=== PATIENT | female | born 1955 | race Caucasian/White ===

== ENCOUNTER 2019-04-23 19:27 | Emergency (ER) | payer OTHER ==
[~2019-04-23] VITALS: Ht 160 cm; Wt 52.2 kg
[~2019-04-23 19:27] MED LIST: Desyrel50 MG PO; ESTRIOL; I PRIN PO; LEVSOD75 PO; TESTOSTERONE
[2019-04-23] MEDS ORDERED: Roxicodone5 MG PO (21:21)
== END 2019-04-23 21:44 | disposition home or self-care (01) ==
LOC: ER 19:27
DX: S52.611A Displaced fracture of right ulna styloid process, initial encounter for closed fracture (principal); S52.501A Unspecified fracture of the lower end of right radius, initial encounter for closed fracture; Z88.1 Allergy status to other antibiotic agents; Z79.899 Other long term (current) drug therapy; E03.9 Hypothyroidism, unspecified; Z87.891 Personal history of nicotine dependence
CPT/HCPCS: 29105; 73110; 99283-25; A9270

== ENCOUNTER 2022-02-01 07:07 | Day surgery (SDC) | payer MEDICARE, OTHER ==
[~2022-02-01] VITALS: Ht 162.6 cm; Wt 56.4 kg
[~2022-02-01 07:07] MED LIST changes: +ALENDRONATE SOD35 MG PO; -Desyrel50 MG PO; +NORVASC2.5 MG PO; +Roxicodone5 MG PO; +TRAZ100 PO; +ZOCOR20 MG PO
--- NOTE | 2022-02-01 08:43 | NUR ---
History, Chart, Medications and Allergies reviewed before start of procedure. Patient confirms NPO status and agrees with scheduled surgery. Pre-Op teaching done. Pt verbalizes understanding. PT BELONGINGS PLACED UNDERNEATH GURNEY FOR SAFEKEEPING.
--- NOTE | 2022-02-01 11:20 | NUR ---
Patient up to Ambulate independently. Gait steady. Hipolito Paws warming gown applied. Discharge instructions reviewed with patient. Patient verbalizes understanding. Copy given to patient to take home.Lungs clear T/O to Auscultation. Patient States Post-Procedure ride home has been arranged. Patient states colon prep results clear.
== END 2022-02-01 11:23 | disposition home or self-care (01) ==
LOC: ORSCMMR 07:07 → ORD 08:30 → ORSCMMR 08:30
PROVIDERS: Surgery
PROC: 0JH60WZ Insertion of Totally Implantable Vascular Access Device into Chest Subcutaneous Tissue and Fascia, Open Approach (ICD-10-PCS; principal; 2022-02-01 08:30)
DX: C50.811 Malignant neoplasm of overlapping sites of right female breast (principal); Z80.3 Family history of malignant neoplasm of breast; I10 Essential (primary) hypertension; E03.9 Hypothyroidism, unspecified; E78.00 Pure hypercholesterolemia, unspecified; F32.A Depression, unspecified; Z79.899 Other long term (current) drug therapy; Z87.891 Personal history of nicotine dependence
CPT/HCPCS: 77001; C1788; J0690; J1100; J1642; J2250; J2370; J2405; J2704; J2795; J3010; J7120

== ENCOUNTER → 2022-06-16 | Outpatient (CLI) | payer MEDICARE, OTHER | END | disposition home or self-care (01) | LOC: LAB SHORT 11:52 → LAB 11:52 | DX: L08.9 Local infection of the skin and subcutaneous tissue, unspecified (principal) | CPT/HCPCS: 87070; 87205 ==